=== PATIENT | female | born 1950 | race Caucasian/White ===

== ENCOUNTER 2021-01-15 09:02 | Emergency (ER) | payer OTHER ==
--- OUTSIDE RECORDS SUMMARY | 2021-01-15 09:05 | XMS REPORT | Continuity of Care Document ---
:1950 Author Organization [facility] t Address 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, J Attending Clinician Lab, Fam Pob I Attending Clinician Unavailable Doctor Unassigned, Name Attending Clinician Unavailable CHERYL Attending Clinician Unavailable Problems Condition Condition Condition Status Onset Resolution Last Treating Co mments Source Name Details Category Date Date Treatment Clinician Date Calcific Calcific Problem Active Unive rs tendinitis tendinitis HL7.CCDAR2 ity of of right of right [place] shoulder shoulder Physic i ans Right Right Problem Active Univers shoulder shoulder HL7.CCDAR2 it y of pain pain [place] Physici ans Tear of Tear of Problem Active Univers right right HL7.CCDAR2 ity of [place] tus tendon tus tendon Ph ysici ans Pain of Pain of Problem Active Univers left hand left hand HL7.CCDAR2 ity of [place] Physici ans Allergies, Adverse Reactions, Alerts This patient has no known allergies or adverse reactions. Medications Ordered Filled Start Stop Current Ordering Indication Dosage Frequency Signature Comments Components Source Medication Medication Date Date Medication? Clinician (SIG) Name Name MethylPREDN MethylPREDN Yes SEAN TAKE Univers ISolone 4 ISolone 4 4-25 CHERYL DIRECTED ity of MG Oral MG Oral 00:00: M.D. [place] Tablet Tablet 00 Physici Therapy Therapy ans Pack Pack Diclofenac Diclofenac Yes SEAN Apply one Univers Sodium 1 % Sodium 1 % 4-25 CHERYL inch to ity of Transdermal Transdermal 00:00: M.D. the [place] Gel Gel 00 affected Physici area up to ans three times a day. MethylPREDN MethylPREDN 2016- Yes SEAN TAKE Univers ISolone 4 ISolone 4 0-09 CHERYL DIRECTED ity of MG Oral MG Oral 00:00: M.D. [place] Tablet Tablet 00 Physici Therapy Therapy ans Pack Pack Procedures Procedure Date / Time Performed Performing Clinician Sourc e [U] XRAY HAND MIN 3 2018-01-27 00:00:00 [facility] VWS LEFT [id number] Physicians [U] XRAY SHOULDER MIN 2017-09-21 00:00:00 [facility] 2 S RIGHT [id number] Physicians [U] XRAY SHOULDER MIN 2017-08-26 00:00:00 [facility] 2 [facility] RIGHT [id number] Physicians Encounters Start End Encounter Admission Attending Care Care Encounter Source Date/Time Date/Time Type Type Clinicians Facility Department ID 2021-01-09 2021-01-09 Urgent Provider, [facility] [id number] 16:54:15 18:06:51 [facility] [id number] Care [place] [id number] Professio [phone] nal [facility] Office Building One 2021-01-08 2021-01-08 [facility] [id number] 00:00:00 00:00:00 [facility] [id number] [place] [id number] Professio [phone] nal [facility] Office Building One 2021-01-07 2021-01-07 [facility] [id number] 00:00:00 00:00:00 [facility] [id number] [place] [id number] Professio [phone] nal [facility] Office Building One 2021-01-04 2021-01-04 Laboratory Lab, [facility] [id number] 17:01:14 17:21:14 Only Fam Pob I Health [id number] [place] [id number] Professio [phone] [place] [address] Office Building One 2021-01-01 2021-01-01 Laboratory Lab, [facility] [id number] 10:01:50 10:21:50 Only Fam Pob I Health [id number] [place] [id number] Professio [phone] [place] [address] Office Building One 2020-12-31 2020-12-31 Telephone Brad [facility] [id number] 00:00:00 00:00:00 [facility] [id number] [place] [id number] Professio [phone] [place] [address] Office Building One 2020-12-01 2020-12-01 Refill Brad [facility] [id number] 00:00:00 00:00:00 [facility] [id number] [place] [id number] Professio [phone] [place] [address] Office Building One 2020-11-06 2020-11-06 [facility] [id number] 00:00:00 00:00:00 [facility] [id number] [place] [id number] Professio [phone] [place] [address] Office [facility] One 2020-11-06 2020-11-06 Orders Doctor SALDANA [id number] 00:00:00 00:00:00 Only Unassigned, CURTIS [id number] [place] [facility] [id number] [id number] [id number] 2020-08-22 2020-08-22 Orders Doctor SHANA 1.2.840.114 [id number] 00:00:00 00:00:00 Only Unassigned, CURTIS [id number] [place] [facility] 4.2.7.2.686 [id number] 009 2020-08-19 2020-08-19 Refill Brad [facility] [id number] 00:00:00 00:00:00 [facility] [id number] [place] [id number] Professio [phone] [place] [address] Office Building [facility] 2020-08-09 2020-08-09 Orders Doctor SHANA 1.2.840.114 [id number] 00:00:00 00:00:00 Only Unassigned, CURTIS [id number] [place] [facility] 4.2.7.2.686 [id number] [id number] 2020-07-16 2020-07-16 Telemedici [facility] [id number] 11:58:17 17:58:38 ne Visit [facility] [id number] [place] [id number] Professio [phone] [place] [address] [facility] 2020-07-12 2020-07-12 [facility]phone [facility] 1.2.840.114 [id number] 00:00:00 00:00:00 [facility] [id number] [place] [id number] Professio [phone] [place] [address] [facility] 2020-06-07 2020-06-07 Orders Doctor SHANA 1.2.840.114 [id number] 00:00:00 00:00:00 Only Unassigned, CURTIS [id number] [place] [facility] 4.2.7.2.686 [id number] [id number] 2020-05-17 2020-05-17 Orders Doctor SHANA 1.2.840.114 [id number] 00:00:00 00:00:00 Only Unassigned, CURTIS [id number] [place] [facility] 4.2.7.2.686 [id number] [id number] 2020-05-09 2020-05-09 Telephone [facility] 1.2.840.114 [id number] 00:00:00 00:00:00 Wondiful A [place] [id number] [place] [id number] Professio [phone] [address] 2020-02-08 2020-02-08 [facility] 1.2.840.114 [id number] 00:00:00 00:00:00 Wondiful A [place] [id number] [place] [id number] Professio [phone] [address] 2020-02-07 2020-02-07 [facility]phone [facility] 1.2.840.114 [id number] 00:00:00 00:00:00 Wondiful A [place] [id number] [place] [id number] Professio [phone] [address] 2020-02-06 2020-02-06 Telemedici [facility] 1.2.840.114 [id number] 08:46:38 14:59:01 ne Visit Wondiful A [place] [id number] [place] [id number] Professio [phone] [address] 2018-01-27 2018-01-[address] [facility] [id number] Univers 13:45:00 13:45:00 t; SEAN LUNA [facility] [place] ESTRADA M.D. Physici ans 2017-11-04 2017-11-[facility] [id number] Univers 08:45:00 08:45:00 t; SEAN LUNA [facility] [place] ESTRADA M.D. Physici ans 2017-11-02 2017-11-02 Appointeveline LUNA [facility] [id number] Univers 08:30:00 08:30:00 t; SEAN LUNA it y of [place] ESTRADA M.D. Physici ans 2017-09-21 2017-09-[address] [facility] [id number] Univers 08:45:00 08:45:00 t; SEAN LUNA [facility] [place] ESTRADA M.D. Physici ans 2017-08-26 2017-08-26 SAMANTA Ravi [facility] [id number] Univers 10:30:00 10:30:00 t; SEAN LUNA [facility]oped[facility] ity [place] Barrera M.D. Physici ans 2017-08-11 2017-08-11 AppointSAMANTA [facility] [id number] Univers 10:00:00 10:00:00 t; SEAN LUNA it y of [place], M.D. [place] M.D. Physici ans 2017-07-29 2017-07-29 [facility] SAMANTA LUNA UTP [id number] Univers 14:45:00 14:45:00 t; SEAN LUNA it y of [place], M.D. [place] M.D. Physici ans 2017-07-13 2017-07-13 [facility] SAMANTA LUNA UTP [id number] Univers 14:45:00 14:45:00 t; SEAN LUNA it y of [place], M.D. [place] M.D. Physici ans 2017-07-02 2017-07-02 [facility] SAMANTA LUNA UTP [id number] Univers 10:30:00 10:30:00 t; SEAN LUNA it y of [place], M.D. [place] M.D. Physici ans 2017-05-21 2017-05-21 [facility] SAMANTA LUNA UTP [id number] Univers 14:15:00 14:15:00 t; SEAN LUNA it y of [place], M.D. [place] M.D. Physici ans Results Test Description Test Time Test Comments Results Result Sour e Comments [U] XRAY HAND MIN 2018-01-27 Images Univers ity of 3 VWS LEFT [id number] 13:34:00 acquired, not [place] reported on Physicians this accession number.
[2021-01-15 09:47] LABS: Absolute Lymphocytes (CBC) 1.2 K/uL (0.7-4.9); Basophils % 0.6 % (0-1.3); Lymphocytes % 19.1 % (15.3-44.8); MPV 9.2 fL (7.6-11.3); RBC Red Blood Cell Count 4.54 M/uL (3.86-4.86)
[2021-01-15] MEDS ORDERED: ONDANSETRON 4 MG/2 ML VIAL ONE (09:53)
[2021-01-15] MEDS ORDERED: NA CHLORIDE 0.9% 1,000 ML ONE (09:53)
[2021-01-15 09:59] LABS: Albumin 3.3 g/dL (3.4-5.0); Bilirubin Direct 0.3 mg/dL (0-0.2); Bilirubin Total 0.8 mg/dL (0.2-1.0); Potassium 3.3 mmol/L (3.5-5.1); Protein, Total 7.1 g/dL (6.4-8.2)
--- NOTE | 2021-01-15 11:02 | RAD REPORT ---
EXAM DESCRIPTION: US - Abdomen Exam Limited - 01/15/2021 10:32 am CLINICAL HISTORY: ABD PAIN COMPARISON: Abdomen Exam Complete dated 07/23/2020 FINDINGS: The gallbladder demonstrates a large shadowing gallstone. No pericholecystic fluid or gall bladder wall thickening. The common bile duct is normal measuring 3 mm. The liver demonstrates no findings of intrahepatic biliary dilatation. IMPRESSION: Cholelithiasis.
[2021-01-15] MEDS ORDERED: POTASSIUM CL SA 10 MEQ TAB PO ONE (11:51)
--- NOTE | 2021-01-15 12:06 | EDPHYS ---
Physician Documentation [facility] Name: Liya Fermin Age: 70 yrs Sex: Female : 1950 Arrival Date: 01/15/2021 Time: 09:03 Bed 17 Private MD: ED Physician Mega Gomez HPI: 01/15 09:58 This 70 yrs old Female presents to ER via Wheelchair with complaints of kb General Weakness, Nausea/Vomiting, covid+. 09:58 The patient presents to the emergency department with nausea, vomiting, diarrhea, kb abdominal pain. Onset: The symptoms/episode began/occurred 3 day(s) ago. Possible causes: covid. The symptoms are aggravated by nothing. The symptoms are alleviated by nothing. Associated signs and symptoms: Pertinent positives: abdominal pain, diarrhea, nausea, vomiting. Severity of symptoms: At their worst the symptoms were moderate in the emergency department the symptoms are unchanged. The patient has not experienced similar symptoms in the past. The patient has not recently seen a physician. "I can't eat or drink anything because it makes me sick. It's been like this for a few days." Pt reports nausea after eating or drinking. STates she has had some upper abd pain, diarrhea and vomiting. Reports feeling fullness to upper abd. No tenderness upon exam. COVID positive on 01/04/21. Historical: - Allergies: 09:23 Codeine; aa5 - PMHx: 09:23 Diabetes - NIDDM; Hypertension; Thyroid problem; aa5 - PSHx: 09:23 ; Tumor removed from shoulder; Knee surgery; elbow; aa5 - Immunization history:: Adult Immunizations unknown. - Social history:: Smoking status: Patient denies any tobacco usage or history of. ROS: 09:56 Cardiovascular: Negative for chest pain, palpitations, and edema, Respiratory: Negative kb for shortness of breath, cough, wheezing, and pleuritic chest pain, MS/Extremity: Negative for injury and deformity, Skin: Negative for injury, rash, and discoloration, Neuro: Negative for headache, numbness, tingling, and seizure. +weakness 09:56 Constitutional: Positive for fatigue, malaise, poor PO intake. 09:56 Abdomen/GI: Positive for abdominal pain, nausea, vomiting, and diarrhea. Exam: 09:57 Constitutional: This is a well developed, well nourished patient who is awake, alert, kb and in no acute distress. Head/Face: Normocephalic, atraumatic. Cardiovascular: Regular rate and rhythm with a normal S1 and S2. No gallops, murmurs, or rubs. No pulse deficits. Respiratory: Respirations even and unlabored. No increased work of breathing, no retractions or nasal flaring. Abdomen/GI: Soft, non-tender. No distention Skin: Warm, dry with normal turgor. Normal color. MS/ Extremity: Pulses equal, no cyanosis. Neurovascular intact. Full, normal range of motion. Neuro: Awake and alert, GCS 15, oriented to person, place, time, and situation. Moves all extremities. Vital Signs: 09:07 BP 146 / 83; Pulse 73; Resp 16 S; Temp 98.2(O); Pulse Ox 96% on R/A; Weight 101.15 kg aa5 (R); Height 5 ft. 1 in. (154.94 cm) (R); Pain 0/10; 10:20 BP 136 / 67; Pulse 58; Resp 16; Pulse Ox 96% ; bp 11:37 BP 119 / 73; Pulse 62; Resp 17; Pulse Ox 97% ; bp 12:12 BP 119 / 73; Pulse 62; Resp 17; Temp 98.5; Pulse Ox 97% ; bp 09:07 Body Mass Index 42.14 (101.15 kg, 154.94 cm) aa5 MDM: 09:09 Patient medically screened. kb 09:56 Data reviewed: vital signs, nurses notes. Data interpreted: Pulse oximetry: on room air kb is 96 %. Interpretation: normal. 11:13 Counseling: I had a detailed discussion with the patient and/or guardian regarding: the kb historical points, exam findings, and any diagnostic results supporting the discharge/admit diagnosis, lab results, radiology results, the need for outpatient follow up, a family practitioner, to return to the emergency department if symptoms worsen or persist or if there are any questions or concerns that arise at home. 12:07 ED course: Results printed, taken to pt and discussed/explained. Pt will follow up with kb general surgery on outpatient basis. Pt has no pain at this time. Tolerating po intake. 01/15 09:22 Order name: Basic Metabolic Panel; Complete Time: :59 kb 01/15 09:22 Order name: CBC with Diff; Complete Time: 09:53 kb 01/15 09:22 Order name: Hepatic Function; Complete Time: 09:59 kb 01/15 09:22 Order name: Lipase; Complete Time: 09:59 kb 01/15 10:00 Order name: US Abdomen Limited; Complete Time: 11:12 kb 01/15 09:22 Order name: IV Saline Lock; Complete Time: 09:38 kb 01/15 09:22 Order name: Labs collected and sent; Complete Time: 09:38 kb 01/15 11:13 Order name: PO challenge; Complete Time: 11:37 kb Administered Medications: 09:30 Drug: NS 0.9% 1000 ml Route: IV; Rate: 1000 ml; Site: right antecubital; bp 12:15 Follow up: IV Status: Completed infusion; IV Intake: 1000ml bp 09:30 Drug: Zofran (Ondansetron) 4 mg Route: IVP; Site: right antecubital; bp 12:15 Follow up: Response: No adverse reaction bp 11:30 Drug: Potassium Chloride 20 mEq Route: PO; bp 12:15 Follow up: Response: No adverse reaction bp Disposition: 16:03 Co-signature as Attending Physician, Mega Gomez MD I agree with the assessment and kdr plan of care. Disposition: 01/15/21 12:06 Discharged to Home. Impression: Nausea and vomiting, Cholelithiasis, Coronavirus infection, unspecified. - Condition is Stable. - Discharge Instructions: Cholelithiasis, [id number], Nausea and Vomiting, Adult, [id number], COVID-19. - Prescriptions for Bentyl 20 mg Oral Tablet - take 1 tablet by ORAL route every 6 hours As needed; 20 tablet. Zofran 4 mg Oral Tablet - take 1 tablet by ORAL route every 6 hours As needed; 20 tablet. - Medication Reconciliation Form, Thank You Letter, Antibiotic Education, Prescription Opioid Use form. - Follow up: Emergency Department; When: As needed; Reason: Worsening of condition. Follow up: Private Physician; When: 2 - 3 days; Reason: Recheck today's complaints, Continuance of care, Re-evaluation by your physician. Signatures: Dispatcher [employer] Monica Sotomayor FNP-C FNP-Ckb Mega Gomez MD MD kdr Maria Elena Gustafson, RN RN aa5 Dre Borges, RN RN bp Corrections: (The following items were deleted from the chart) 12:09 12:07 ED course: Results printed, taken to pt and discussed/explained. Pt will follow kb up with general surgery on outpatient basis. Pt has no pain at this time. . kb 12:16 12:06 01/15/2021 12:06 Discharged to Home. Impression: Nausea and vomiting; bp Cholelithiasis; Coronavirus infection, unspecified. Condition is Stable. Forms are Medication Reconciliation Form, Thank You Letter, Antibiotic Education, Prescription Opioid Use. Follow up: Emergency Department; When: As needed; Reason: Worsening of condition. Follow up: Private Physician; When: 2 - 3 days; Reason: Recheck today's complaints, Continuance of care, Re-evaluation by your physician. kb
--- NOTE | 2021-01-15 12:06 | ER ---
Nurse's Notes [facility] Name: Liya Fermin Age: 70 yrs Sex: Female : 1950 Arrival Date: 01/15/2021 Time: 09:03 Bed 17 Private MD: Diagnosis: Nausea and vomiting;Cholelithiasis;Coronavirus infection, unspecified Presentation: 01/15 09:07 Chief complaint: Patient states: "I can't eat because food makes me sick to my stomach aa5 and I also have a little bit of diarrhea". Pt also reports cough. Reports positive for COVID-19 on January 04. 09:07 Coronavirus screen: Client reports previous positive COVID test result. Ebola Screen: aa5 Patient negative for fever greater than or equal to 101.5 degrees Fahrenheit, and additional compatible Ebola Virus Disease symptoms. Initial Sepsis Screen: Does the patient meet any 2 criteria? No. Patient's initial sepsis screen is negative. Does the patient have a suspected source of infection? No. Patient's initial sepsis screen is negative. Risk Assessment: Do you want to hurt yourself or someone else? Patient reports no desire to harm self or others. Onset of symptoms was January 2021. 09:07 Method Of Arrival: Wheelchair aa5 09:07 Acuity: PAN 3 aa5 Triage Assessment: 09:15 General: Appears distressed, uncomfortable, obese, Behavior is cooperative, appropriate bp for age, anxious. Pain: Complains of pain in abdomen. EENT: No deficits noted. Neuro: No deficits noted. Cardiovascular: No deficits noted. Respiratory: Reports cough that is. GI: Reports nausea, vomiting. : No signs and/or symptoms were reported regarding the genitourinary system. Derm: No deficits noted. Musculoskeletal: No deficits noted. Historical: - Allergies: 09: Codeine; aa5 - PMHx: 09:23 Diabetes - NIDDM; Hypertension; Thyroid problem; aa5 - PSHx: :23 ; Tumor removed from shoulder; Knee surgery; elbow; aa5 - Immunization history:: Adult Immunizations unknown. - Social history:: Smoking status: Patient denies any tobacco usage or history of. Screenin:15 Abuse screen: Denies threats or abuse. Denies injuries from another. Nutritional bp screening: No deficits noted. Tuberculosis screening: No symptoms or risk factors identified. Fall Risk None identified. Assessment: 09:15 General: SEE TRIAGE NOTE. bp 10:26 Reassessment: No changes from previously documented assessment. Patient and/or family bp updated on plan of care and expected duration. Pain level reassessed. Patient is alert, oriented x 3, equal unlabored respirations, skin warm/dry/pink. U/S AT B/S. 11:37 Reassessment: PO CHALLENGE SUCCESSFUL. GI: Abdomen is non-distended, obese. bp 12:12 Reassessment: PT D/C HOME VIA W/C WITH FAMILY, DX WITH NAUSEA/VOMITING AND COVID+. bp Vital Signs: 09:07 BP 146 / 83; Pulse 73; Resp 16 S; Temp 98.2(O); Pulse Ox 96% on R/A; Weight 101.15 kg aa5 (R); Height 5 ft. 1 in. (154.94 cm) (R); Pain 0/10; 10:20 BP 136 / 67; Pulse 58; Resp 16; Pulse Ox 96% ; bp 11:37 BP 119 / 73; Pulse 62; Resp 17; Pulse Ox 97% ; bp 12:12 BP 119 / 73; Pulse 62; Resp 17; Temp 98.5; Pulse Ox 97% ; bp 09:07 Body Mass Index 42.14 (101.15 kg, 154.94 cm) aa5 ED Course: 09:03 Patient arrived in ED. am2 09:07 Dre Borges, RN is Primary Nurse. bp 09:07 Arm band placed on Patient placed in an exam room, on a stretcher. aa5 09:09 Monica Paul FNP-C is PHCP. kb 09:09 Mega Gomez MD is Attending Physician. kb 09:15 Patient has correct armband on for positive identification. Bed in low position. Call bp light in reach. Side rails up X2. 09:21 Triage completed. aa5 09:36 Initial lab(s) drawn, by me, sent to lab. Inserted saline lock: 20 gauge in right kj1 antecubital area, using aseptic technique. Blood collected. 10:31 US Abdomen Limited In Process Unspecified. EDMS 12:14 No provider procedures requiring assistance completed. IV discontinued, intact, bp bleeding controlled, No redness/swelling at site. Pressure dressing applied. Administered Medications: 09:30 Drug: NS 0.9% 1000 ml Route: IV; Rate: 1000 ml; Site: right antecubital; bp 12:15 Follow up: IV Status: Completed infusion; IV Intake: 1000ml bp 09:30 Drug: Zofran (Ondansetron) 4 mg Route: IVP; Site: right antecubital; bp 12:15 Follow up: Response: No adverse reaction bp 11:30 Drug: Potassium Chloride 20 mEq Route: PO; bp 12:15 Follow up: Response: No adverse reaction bp Intake: 12:15 IV: 1000ml; Total: 1000ml. bp Outcome: 12:06 Discharge ordered by MD. kb 12:14 Discharged to home via wheelchair, with family. bp 12:14 Condition: stable 12:14 Discharge instructions given to patient, Instructed on discharge instructions, follow up and referral plans. medication usage, Demonstrated understanding of instructions, follow-up care, medications, Prescriptions given X 2. 12:16 Patient left the ED. bp Signatures: Dispatcher [employer] EDMS Monica Paul, STEPHENC ZACKARY-Maria Elena Chase, RN RN aa5 Mayra Gusman am2 Dre Bogres RN RN bp Radha Paul kj1
[2021-01-15 12:27] VITALS: BP 119/73; O2SAT 97
[2021-01-15 12:28] VITALS: TEMP 98.5
== END 2021-01-15 12:16 | disposition home or self-care (01) ==
LOC: ER 09:02
DX: U07.1 COVID-19 (principal); K80.20 Calculus of gallbladder without cholecystitis without obstruction; R11.2 Nausea with vomiting, unspecified; E11.9 Type 2 diabetes mellitus without complications; I10 Essential (primary) hypertension
CPT/HCPCS: 85025; 80048; 36415; 80076; 83690; 76705; J7030; J2405; 96361; 96374; 99284